=== PATIENT | male | born 1970 ===

== ENCOUNTER 2017-07-03 14:11 | Emergency (ER) | payer BC ==
[2014-05-04 17:27] VITALS: BMI 29.8
[2017-07-03 14:19] VITALS: O2SAT 99
[2017-07-03 15:17] LABS: BASO # 0.1 K/uL (0.0-0.2); BASO % 0.5 % (0.0-2.0); EOS # 0.2 K/uL (0.0-0.7); EOS % 1.3 % (0.0-4.0); HEMOGLOBIN 13.7 g/dL (12.0-18.0); LYMPH # 2.4 K/uL (1.0-4.3); LYMPH % 19.5 % (20.0-40.0); MEAN CELL VOLUME 90.2 fL (80.0-94.0); MEAN CORPUSCULAR HEMOGLOBIN 31.2 pg (27.0-31.0); MEAN CORPUSCULAR HGB CONC 34.6 g/dL (33.0-37.0); MEAN PLATELET VOLUME 8.4 fL (7.2-11.7); MONO # 0.8 K/uL (0.0-0.8); MONO % 6.7 % (0.0-10.0); NEUT # 8.8 K/uL (1.8-7.0); RBC 4.38 Mil/uL (4.40-5.90); RED CELL DISTRIBUTION WIDTH 13.5 % (11.5-14.5); WHITE BLOOD COUNT 12.2 K/uL (4.8-10.8)
[2017-07-03 15:29] LABS: ALB/GLOB RATIO 1.4 (1.0-2.1); ALBUMIN 3.9 g/dL (3.5-5.0); ALT/SGPT 47 U/L (21-72); AST/SGOT 32 U/L (17-59); BLOOD UREA NITROGEN 13 mg/dL (9-20); CALCIUM 8.7 mg/dl (8.6-10.4); GFR AFRICAN-AMERICAN > 60; GFR NON-AFRICAN AMERICAN > 60; LIPASE 62 U/L (23-300)
[2017-07-03] MEDS ORDERED: Sodium Chloride 0.9% 1,000 ML IV ONE (15:35)
[2017-07-03 15:46] LABS: SQUAMOUS EPITHIAL < 1 /hpf (0-5); URINE BILIRUBIN NEGATIVE (NEGATIVE); URINE BLOOD 2+ (NEGATIVE); URINE CALCIUM OXALATE CRYSTALS RARE /hpf (<OCC); URINE CLARITY Hazy (Clear); URINE COLOR Yellow (YELLOW); URINE GLUCOSE (UA) NORMAL (Normal); URINE LEUKOCYTE ESTERASE NEG Leu/uL (Negative); URINE PROTEIN NEGATIVE (NEGATIVE); URINE UROBILINOGEN NORMAL mg/dL (0.2-1.0)
[2017-07-03 16:00] LABS: BARBITURATES, UR NEGATIVE (NEGATIVE); BENZODIAZEPINES, UR NEGATIVE (NEGATIVE); OPIATES, UR NEGATIVE (NEGATIVE); PHENCYCLIDINE, UR NEGATIVE (NEGATIVE)
[2017-07-03] MEDS ORDERED: Iodixanol 320 MG/ML 100 ML BOTTLE IV ONE (16:09)
--- NOTE | 2017-07-03 16:15 | RAD ---
PROCEDURE: Radiographs of the chest and abdomen (obstructive series) HISTORY: abd pain COMPARISON: No prior. TECHNIQUE: AP radiograph of the chest, with upright and supine radiographs of the abdomen. FINDINGS: CHEST: Lungs: Clear. Cardiovascular: Normal size heart. No pulmonary vascular congestion. Pleura: No pleural fluid. No pneumothorax. Other findings: None. ABDOMEN AND PELVIS: Bowel: Moderate retained feces. No evidence of bowel obstruction. No masses or abnormal calcifications. Free air: None. Bones: Unremarkable. Other findings: None. IMPRESSION: Retained feces. Probable constipation. Otherwise unremarkable examination.
--- NOTE | 2017-07-03 16:22 | C.PDOC ---
Time Seen by Provider: 07/03/17 14:22 Chief Complaint (Nursing): Groin Pain Past Medical History Vital Signs: Last Vital Signs Temp 98.3 F 07/03/17 14:17 Pulse 79 07/03/17 14:17 Resp 20 07/03/17 14:17 BP 155/100 H 07/03/17 14:17 Pulse Ox 99 07/03/17 14:17 - Medical History PMH: Arthritis, Hypercholesterolemia Denies: Chronic Kidney Disease - [facility] Procedures EXC LES SOFT TISSUE NEC (05/08/14) OTHER LOCAL DESTRUC SKIN (05/08/14) - Social History Hx Alcohol Use: No Hx Substance Use: No - Immunization History Hx Tetanus Toxoid Vaccination: No Hx Influenza Vaccination: No ED Course And Treatment - Laboratory Results Result Diagrams: 07/03/17 15:13 07/03/17 15:13 O2 Sat by Pulse Oximetry: 99 Disposition - Disposition
--- NOTE | 2017-07-03 16:31 | C.PDOC ---
History Of Present Illness 47 year old male presents to the Ed with complaints of right flank pain for the past 3 days. Patient states that the pain radiates down to the right groin. He denies having a history of renal colic or abdominal hernia. 3 days ago long work days in the heat, poor PO fluid intake. Time Seen by Provider: 07/03/17 14:22 Chief Complaint (Nursing): Groin Pain History Per: Patient History/Exam Limitations: no limitations Onset/Duration Of Symptoms: Days Current Symptoms Are (Timing): Still Present Past Medical History Reviewed: Historical Data, Nursing Documentation, Vital Signs Vital Signs: Last Vital Signs Temp 98.5 F 07/03/17 17:08 Pulse 76 07/03/17 17:08 Resp 17 07/03/17 17:14 BP 135/69 07/03/17 17:08 Pulse Ox 99 07/03/17 18:36 - Medical History PMH: Arthritis, Hypercholesterolemia Denies: Chronic Kidney Disease Other PMH: renal colic - [facility] Procedures EXC LES SOFT TISSUE NEC (05/08/14) OTHER LOCAL DESTRUC SKIN (05/08/14) Family History: States: No Known Family Hx - Social History Hx Alcohol Use: No Hx Substance Use: No - Immunization History Hx Tetanus Toxoid Vaccination: No Hx Influenza Vaccination: No Review Of Systems Except As Marked, All Systems Reviewed And Found Negative. Gastrointestinal: Positive for: Abdominal Pain Musculoskeletal: Positive for: Back Pain (right flank pain for 3 days) Physical Exam - Physical Exam Appears: Well, Non-toxic, No Acute Distress Skin: Normal Color, Warm Gastrointestinal/Abdominal: Tenderness (right lower quadrant), Other (no abdominal pain) Male Genital: Other (no Inguinal lymphadenopathy or hernia) ED Course And Treatment - Laboratory Results Result Diagrams: 07/03/17 15:13 07/03/17 15:13 Lab Interpretation: Abnormal (UA 73 RBC's) O2 Sat by Pulse Oximetry: 99 Pulse Ox Interpretation: Normal - Other Rad XR X-Ray: Interpreted by Me, Read By Radiologist Interpretation: IMPRESSION: Retained feces. Probable constipation. Otherwise unremarkable examination. Medical Decision Making Medical Decision Making: R renal colic mild hematuria 2mm @ UVJ, pt pain free with ED tx. Disposition Doctor Will See Patient In The: Office Counseled Patient/Family Regarding: Studies Performed, Diagnosis - Disposition Referrals: Stas Silvestre [Staff Provider] - Herman Garcia Jr., MD [Staff Provider] - Disposition: HOME/ ROUTINE Disposition Time: 16:54 Condition: GOOD Additional Instructions: colico renal de hermann de 2 mm junior abiola agua Ibuprofeno 600 mg cada 6 horas martha necessario busca la hermann en la [place] Sigue con martinez medico o' con el Urologo- Dr. Garcia- martha necessario Instructions: Renal Colic (DC) Forms: e-SENS (Polish) Print Language: MALTESE - Clinical Impression Clinical Impression: Renal colic on right side - Scribe Statement The provider has reviewed the documentation as recorded by the Scribe (Bri Lakhani) Provider Attestation: All medical record entries made by the Scribe were at my direction and personally dictated by me. I have reviewed the chart and agree that the record accurately reflects my personal performance of the history, physical exam, medical decision making, and the department course for this patient. I have also personally directed, reviewed, and agree with the discharge instructions and disposition.
--- NOTE | 2017-07-03 16:50 | CT ---
PROCEDURE: CT Abdomen and Pelvis with contrast HISTORY: RLQ pain x 3 days, ? R inguinal hernia vs AP COMPARISON: None. TECHNIQUE: Contrast dose: 100 mL Visipaque 320. Axial and reformatted coronal and sagittal CT images of the abdomen and pelvis were obtained after IV contrast administration. Radiation dose: Total exam DLP = 567.33 mGy-cm. This CT exam was performed using one or more of the following dose reduction techniques: Automated exposure control, adjustment of the mA and/or kV according to patient size, and/or use of iterative reconstruction technique. FINDINGS: LOWER THORAX: No evidence of acute pathology at the lung bases. No evidence of pleural effusion or cardiomegaly. LIVER: Mild fatty liver infiltration is noted. The portal vein is patent. . No gross lesion or ductal dilatation. GALLBLADDER AND BILE DUCTS: Unremarkable. PANCREAS: Unremarkable. No gross lesion or ductal dilatation. SPLEEN: Unremarkable. ADRENALS: Unremarkable. No mass. KIDNEYS AND URETERS: There is mild right hydronephrosis and hydroureter up to 2 millimeter calcaneus at the distal right ureter/UV junction best seen on image 78 series 2. Mild right perinephric stranding and very reticular stranding noted. The left kidney is unremarkable. VASCULATURE: Unremarkable. No aortic aneurysm. BOWEL: Unremarkable. No obstruction. No gross mural thickening. Scattered few colonic diverticulosis are seen without evidence of diverticulitis. APPENDIX: No evidence of appendicitis. PERITONEUM: Unremarkable. No free fluid. No free air. LYMPH NODES: Unremarkable. No enlarged lymph nodes. BLADDER: Unremarkable. REPRODUCTIVE: The prostate is mildly enlarged. BONES: No acute fracture. OTHER FINDINGS: None. IMPRESSION: No evidence of appendicitis or evidence of hernia. Mild right hydronephrosis and hydroureter up to 2 millimeter calculus at the distal right ureter/ UV junction as described above. Otherwise no evidence of acute pathology in the abdomen and pelvis.
[2017-07-03 17:14] VITALS: BP 135/69; PULSE 76; TEMP 98.5
[2017-07-03 17:15] VITALS: RESP 17
== END 2017-07-03 17:14 | disposition home or self-care (01) ==
LOC: C.ER 14:11
DX: N13.2 Hydronephrosis with renal and ureteral calculous obstruction (principal)
CPT/HCPCS: 74022; 74177; 80053; 81001; 83690; 85025; 96361; 96374; 99285; G0480; J1885; J7040; Q9967